=== PATIENT | male | born 1970 | race Caucasian/White ===

== ENCOUNTER → 2017-04-27 | Outpatient (CLI) | payer BC, OTHER ==
[~2017-04-27] MED LIST: TIMO0.2534 OPB
--- NOTE | 2017-04-27 14:35 | DIAGNOSTIC IMAGING REPORT ---
LEFT WRIST MIN 3 VIEWS ROUTINE CLINICAL HISTORY: LEFT WRIST NUMBNESS pain. Neuropathy. COMPARISON: None. DISCUSSION: The bones and joint spaces appear intact. There is no evidence of fracture, dislocation or bony disease. There is no evidence for soft tissue swelling. IMPRESSION: Negative study. The above report was generated using voice recognition software. It may contain grammatical, syntax or spelling errors. Electronically signed by: Jesse Gilmore M.D. 04/27/2017 2:34 PM Dictated Date/Time: 04/27/2017 2:33 PM
== END | disposition home or self-care (01) ==
LOC: C.RDSM 14:20
PROVIDERS: ATTEND Physician Assistant
DX: R20.0 Anesthesia of skin (principal); G62.9 Polyneuropathy, unspecified